=== PATIENT | female | born 1975 | race Caucasian/White ===

== ENCOUNTER → 2019-09-08 | Outpatient (CLI) | payer OTHER ==
[~2019-09-08] MED LIST: ACET325; ACET500 PO; ALBU90OI INH; ALBU90OI6 INH; ALBU90OI61 INH; AMOX500 PO; ASPI81CH PO; ASPI81EC; AZIT250 PO; BENZ100A PO; BUDE200IP IH; BUDE200IP INH; CLON.5 PO; CYCL10 PO; DIPH50 PO; DOCU100 PO; ERYT.5TO OD; ESCI10 PO; ESCI5; ESTR.1TPW TOP; FLUT.05NI; GABA300 PO; HYDACE5 PO; HYDPAM25 PO; IBUP400 PO; IBUP600 PO; IBUP800 PO; INDO25 PO; KETO10 PO; LAMO25 PO; LEVFLO500 PO; LORA.5 PO; LORA1 PO; LORA2 PO; MECL25 PO; MULVITMINE; NABU500 PO; NAPR220; NAPR500 PO; OLAN2.5; ONDA4ODT MM; OXYACE5T PO; PHENA200 PO; PROM25 PO; QUET100 PO; RISP1 PO; RXHYDACE PO; RXLORA1 PO; RXNAPNA550 PO; RXPROM25 PO; TRAM50 PO; TRIA80TC TOP; VARE1 PO; ZOLP10 PO; [UNRECOGNIZED DRUG - REMARK]; [UNRECOGNIZED DRUG - REMARK]
== END | disposition home or self-care (01) ==
LOC: LAB SHORT 09:23 → LAB 09:23
DX: H92.02 Otalgia, left ear (principal)
CPT/HCPCS: 87070; 87077; 87186; 87205

== ENCOUNTER → 2020-09-23 | Outpatient (CLI) | payer OTHER | LOC: LAB SHORT 19:05 → PLD 19:05 | DX: L02.91 Cutaneous abscess, unspecified (principal) | CPT/HCPCS: 87070; 87075; 87077; 87205 ==

== ENCOUNTER → 2020-12-12 | Outpatient (CLI) | payer OTHER | END | disposition home or self-care (01) | LOC: LAB SHORT 16:35 → LAB 16:35 | PROVIDERS: Internal Medicine Rheumatology | DX: R76.8 Other specified abnormal immunological findings in serum (principal) | CPT/HCPCS: 86038 ==